=== PATIENT | male | born 1960 | race Caucasian/White ===

== ENCOUNTER 2016-12-10 12:02 | Emergency (ER) | payer OTHER ==
[~2016-12-10] VITALS: Ht 170.2 cm; Wt 76.2 kg
[~2016-12-10 12:02] MED LIST: BENADRYL ALLERG25 MG PO; KEFLEX500 MG PO
[2016-12-10] MEDS ORDERED: ADVIL MIGRAINE200 MG PO (12:19)
[2016-12-10] MEDS ORDERED: PROTONIX40 MG PO (14:51)
--- NOTE | 2016-12-11 21:54 | EKG ---
[facility] [address] [place] [address] Signed Normal sinus rhythm Normal ECG No previous ECGs available Confirmed by NELDA MCCRAY MD ([id number]) on 12/11/2016 9:54:48 PM Electronically Signed By: NELDA MCCRAY MD 12/11/16 2154 PATIENT NAME: JAQUELIN PEACOCK Electrocardiogram DATE OF : 64 PHYSICIAN: NELDA MCCRAY MD REPORT #: [id number] REPORT IS CONFIDENTIAL AND NOT TO BE RELEASED WITHOUT AUTHORIZATION
== END 2016-12-10 15:20 | disposition home or self-care (01) ==
LOC: ED 12:02
DX: K20.9 Esophagitis, unspecified (principal); I10 Essential (primary) hypertension; J44.9 Chronic obstructive pulmonary disease, unspecified; F17.200 Nicotine dependence, unspecified, uncomplicated; Z90.89 Acquired absence of other organs; Z88.8 Allergy status to other drugs, medicaments and biological substances
CPT/HCPCS: 74177; 80053; 81001; 82150; 83690; 84484; 85025; 93005; 93010; 96374; 96375; 99284; J1170; J2405; Q9967

== ENCOUNTER 2018-05-19 10:43 | Emergency (ER) | payer OTHER ==
[~2018-05-19] VITALS: Ht 170.2 cm; Wt 76.2 kg
[~2018-05-19 10:43] MED LIST changes: +ADVIL MIGRAINE200 MG PO; +PROTONIX40 MG PO
--- OUTSIDE RECORDS SUMMARY | 2018-05-19 10:46 | XMS ---
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 Guidelines Source: [facility] Guidelines Date: 02/24/2017 Care Coordination: IF THIS PATIENT IS SEEN IN ANY ED -- PLEASE ADVISE PATIENT THAT NEO MORGAN NP AT [facility] AGREED TO SEE HIM PCP. HE NEEDS TO CALL THEM AND SCHEDULE A NEW PATIENT APPOINTMENT WITH HER. Paige VISIT COUNT (12 MO.) 1 [facility]. TOTAL 1 NOTE: Visits indicate total known visits. ED/UCC VISIT TRACKING (12 MO.) 05/19/2018 10:[address] [facility] OR TYPE: Emergency COMPLAINT: - MULTIPLE COMPLAINTS INPATIENT VISIT TRACKING (12 MO.) No inpatient visits to display in this time frame [email or web address]
[2018-05-19] MEDS ORDERED: GABAPENTIN300 MG PO (11:00)
[2018-05-19] MEDS ORDERED: ALBUTEROL SUL HFA 90 (11:01)
[2018-05-19] MEDS ORDERED: CYCLOBENZAPRINE5 MG PO (12:48)
[2018-05-19] MEDS ORDERED: MEDROL4 MG PO (12:48)
--- NOTE | 2018-05-19 17:36 | EKG ---
[facility] [address] [facility] [place], [place] [address] Signed Normal sinus rhythm Normal ECG When compared with ECG of 10-DEC-2016 12:26, No significant change was found Confirmed by ZEENAT MOONEY DO ([id number]) on 05/19/2018 5:36:24 PM Electronically Signed By: ZEENAT MOONEY DO 05/19/18 1736 PATIENT NAME: JAQUELIN PEACOCK Electrocardiogram DATE OF : 64 PHYSICIAN: ZEENAT MOONEY DO REPORT #: [id number] REPORT IS CONFIDENTIAL AND NOT TO BE RELEASED WITHOUT AUTHORIZATION
== END 2018-05-19 13:00 | disposition home or self-care (01) ==
LOC: ED 10:43
DX: R07.89 Other chest pain (principal); R05 Cough; I10 Essential (primary) hypertension; J44.9 Chronic obstructive pulmonary disease, unspecified; F17.200 Nicotine dependence, unspecified, uncomplicated; Z90.49 Acquired absence of other specified parts of digestive tract; Z88.8 Allergy status to other drugs, medicaments and biological substances; Z79.899 Other long term (current) drug therapy
CPT/HCPCS: 71045; 80053; 83690; 84484; 85025; 93005; 93010; 99284-25; 99406

== ENCOUNTER 2018-07-26 16:08 | Emergency (ER) | payer OTHER ==
[~2018-07-26] VITALS: Ht 170.2 cm; Wt 68.0 kg
[~2018-07-26 16:08] MED LIST changes: +ALBUTEROL SUL HFA 90; +CYCLOBENZAPRINE5 MG PO; +GABAPENTIN300 MG PO; +MEDROL4 MG PO
--- OUTSIDE RECORDS SUMMARY | 2018-07-26 16:12 | XMS ---
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 No recent Security Events currently on file CRITERIA MET - [facility] - Has Care Guidelines CARE PROVIDERS Patrick Piper [facility] 05/20/2018-Current PHONE: Unknown Guidelines [facility] Date: 05/19/2018 Care Recommendation: If seen in the ER please contact [facility] at [phone].\T\nbsp; Client has a history of substance use.\T\nbsp; Client no longer resides at a [facility] facility.\T\nbsp; He is believed to be homeless.\T\nbsp;\T\nbsp; Care History Medical/Surgical 05/20/2018 [facility] - Patient is currently established with [facility]. If patient is seen in the ED during business hours. Please contact [facility] at [facility]. Care Recommendation: This patient has had 5 or more Emergency Department visits in the last 12 months.\T\nbsp; Patient requires education on the scope and purpose of the ED as an acute care provider not a Primary Care Provider and should not be utilized for chronic conditions.\T\nbsp; These are guidelines and the provider should exercise clinical judgment when providing care. E.D. VISIT COUNT (12 MO.) 2 [facility] TOTAL 2 NOTE: Visits indicate total known visits. ED/UCC VISIT TRACKING (12 MO.) 07/26/2018 16:09 [facility] TYPE: Emergency COMPLAINT: - NECK PAIN 05/19/2018 10:43 [facility] TYPE: Emergency COMPLAINT: - MULTIPLE COMPLAINTS DIAGNOSES: - Other chest pain - Nicotine dependence, unspecified, uncomplicated - Other residential (current) drug therapy - Chronic obstructive pulmonary disease, unspecified - Acquired absence of other specified parts of digestive tract - Allergy status to other drugs, medicaments and biological substances status - Essential (primary) hypertension - Cough INPATIENT VISIT TRACKING (12 MO.) No inpatient visits to display in this time frame [email or web address]
[2018-07-26] MEDS ORDERED: CYCLOBENZAPRINE10 MG PO (20:09)
== END 2018-07-26 20:15 | disposition home or self-care (01) ==
LOC: ED 16:08
DX: M50.30 Other cervical disc degeneration, unspecified cervical region (principal); M47.9 Spondylosis, unspecified; I10 Essential (primary) hypertension; J44.9 Chronic obstructive pulmonary disease, unspecified; F17.200 Nicotine dependence, unspecified, uncomplicated; Z90.89 Acquired absence of other organs; Z88.8 Allergy status to other drugs, medicaments and biological substances
CPT/HCPCS: 72125; 99283-25